=== PATIENT | male | born 1975 | race Caucasian/White ===

== ENCOUNTER → 2019-12-22 | Outpatient (CLI) | payer BC ==
--- NOTE | 2019-12-23 04:20 | REP ---
Clinical: Lower extremity edema. Technique: Real time wolf scale and color Doppler evaluation using linear high frequency transducer. Reflux evaluation performed. Findings: Ultrasound examination of the bilateral lower extremity deep venous structures from the common femoral vein to the popliteal vein demonstrates normal compressibility, flow, and wave patterns in response to respiration and augmentation. There is no evidence for deep venous thrombosis. Significant edema is appreciated bilaterally (right greater than left). Incidental duplicated left mid femoral vein noted. Right inguinal lymph node measure up to 2.8 x 1.2 x 2.0 cm. Reflux evaluation of the right lower extremity demonstrates minimal reflux through the deep venous structures. No reflux noted through the superficial system. Reflux evaluation of the left lower extremity demonstrates minimal reflux through the deep venous structures. No reflux noted through the superficial system. Impression: 1. No evidence for deep venous thrombosis. 2. Minimal reflux through the bilateral deep venous systems. 3. Bilateral lower extremity edema (right greater than left) somewhat limits evaluation. 4. 2.8 x 1.2 x 2.0 cm right inguinal lymph node. Electronically Signed by Damon Saenz MD 12/23/2019 04:11 A
== END ==
LOC: M RAD 08:12
PROVIDERS: ATTEND Physician Assistant
DX: R60.9 Edema, unspecified (principal)

== ENCOUNTER → 2020-01-11 | Outpatient (CLI) | payer BC | LOC: M LABSMTC 10:48 | PROVIDERS: ATTEND Anesthesiology | DX: Z03.818 Encounter for observation for suspected exposure to other biological agents ruled out (principal); Z11.59 Encounter for screening for other viral diseases | CPT/HCPCS: C9803; U0003 ==

== ENCOUNTER 2020-01-14 08:03 | Day surgery (SDC) | payer BC ==
[~2020-01-14] VITALS: Ht 175.3 cm; Wt 104.5 kg
[~2020-01-14 08:03] MED LIST: LIDOCAINE 1% MDV 20ML VIAL SQ PRN; LR 1,000 ML IV ONE
[2020-01-14] MEDS ORDERED: MIDAZOLAM INJ 2MG/2ML VIAL (J2250 PER 1MG) As Ordered ONE (09:56)
[2020-01-14] MEDS ORDERED: ONDANSETRON 4MG/2ML VIAL As Ordered ONE (09:57)
[2020-01-14] MEDS ORDERED: METOCLOPRAMIDE INJ 10MG/2ML VIAL (J2765 PER 1) As Ordered ONE (09:57)
[2020-01-14] MEDS ORDERED: LIDOCAINE 2% 100MG/5ML SDV (FOR ANES.) As Ordered ONE (09:57)
[2020-01-14] MEDS ORDERED: propofoL 500 MG/50 ML VIAL As Ordered ONE (09:57)
[2020-01-14] MEDS ORDERED: fentaNYL 100 MCG/2 ML INJECTION (J3010) As Ordered ONE (09:58)
[2020-01-14] MEDS ORDERED: BUPIVACAINE HCL 0.25% 30ML VIAL As Ordered ONE (11:50)
[2020-01-14] MEDS ORDERED: LR 1,000 ML IV SCH (12:30)
[2020-01-14] MEDS ORDERED: PERCOCET 5MG/325MG TAB PO PRN (12:30)
[2020-01-14] MEDS ORDERED: ONDANSETRON 4MG/2ML VIAL IV PRN (12:30)
[2020-01-14] MEDS ORDERED: fentaNYL 100 MCG/2 ML INJECTION (J3010) IV PRN (12:30)
[2020-01-14] MEDS ORDERED: MEPERIDINE INJ 25 MG/ML VIAL (J2175) IV PRN (12:30)
[2020-01-14] MEDS ORDERED: METOCLOPRAMIDE INJ 10MG/2ML VIAL (J2765 PER 1) IV PRN (12:30)
[2020-01-14] MEDS ORDERED: ACETAMINOPHEN TAB 650MG DOSE (2X325MG) PO PRN (12:45)
[2020-01-14] MEDS ORDERED: IBUPROFEN 600MG TAB PO PRN (12:45)
[2020-01-14 14:00] VITALS: BP 134/77
--- NOTE | 2020-01-18 14:04 | RO ---
DATE OF PROCEDURE: 01/14/2020 PREPROCEDURE DIAGNOSIS: Extensive pelvic and inguinal adenopathy. POSTOPERATIVE DIAGNOSIS: Extensive pelvic and inguinal adenopathy. PROCEDURE PERFORMED: Excisional biopsy of right inguinal lymph node. SURGEON: Aurelio Leos MD ANESTHESIA: General. INDICATIONS FOR THE PROCEDURE: The patient is 44-year-old man who for about 6 months has noticed swelling in his right lower extremity. This became more pronounced. He was evaluated by his primary physician with lower extremity ultrasound that showed no evidence of deep venous thrombosis (DVT). Ultimately, he underwent a CT scan of the abdomen and pelvis that revealed extensive adenopathy throughout the pelvis and inguinal areas and also showing some evidence of bilateral hydronephrosis, right greater than left. He is now for a right inguinal node biopsy. OPERATIVE PROCEDURE: The patient was placed on the operating table in a supine position. Thromboembolic deterrents (TEDs) were utilized. He was placed under general anesthesia with a laryngeal mask airway (LMA). The patient's lower abdomen, groins, and genitalia were prepped and draped in a sterile fashion. By palpation, a large node was noted just above the level of the inguinal crease on the right. An approximately 4 cm oblique incision was made paralleling the skin crease. This was deepened into the subcutaneous tissues using the cautery. A self-retaining retractor was placed. The dissection was deepened through the fascia to the level of the node. The node was readily palpable. A slow careful circumferential dissection was carried out. Small vessels were clipped with hemoclips. Avascular tissue was divided with the cautery. It was necessary to extend the incision an additional centimeter or so for better exposure. Ultimately, a 2 cm rounded node was removed. This was sent to the pathology laboratory fresh for processing as a lymph node with concerns about possible lymphoma. The wound was inspected, and there was no evidence of bleeding and no signs of significant lymphatic leak. Approximately 10 mL of 0.25% Marcaine were infiltrated about the wound. The fascia was closed with a running suture of 3-0 chromic. The subcutaneous tissues were closed with chromic, and the skin edges were approximated with a running subcuticular 4-0 Vicryl. The wound was sealed with Dermabond. The patient tolerated the procedure well without apparent complication. He was awakened in the operating room and extubated and moved to the recovery room in stable condition. STEFANY
== END 2020-01-14 14:15 | disposition home or self-care (01) ==
LOC: M SDC 08:03
PROVIDERS: ATTEND Surgery
DX: C77.4 Secondary and unspecified malignant neoplasm of inguinal and lower limb lymph nodes (principal); I10 Essential (primary) hypertension
CPT/HCPCS: 38531; 88307; 88341; 88342; J2250; J2405; J2765; J3010

== ENCOUNTER → 2020-01-19 | Outpatient (CLI) | payer BC ==
[~2020-01-19] MED LIST changes: +FIRM120I5 SC; +KEFL500C17 PO; -LIDOCAINE 1% MDV 20ML VIAL SQ PRN; -LR 1,000 ML IV ONE
== END ==
LOC: M LAB 09:09
PROVIDERS: ATTEND Urology
DX: C61 Malignant neoplasm of prostate (principal)

== ENCOUNTER → 2020-01-21 | Outpatient (CLI) | payer BC ==
[2020-01-21 13:44] LABS: APPEARANCE, URINE CLEAR (CLEAR); BACTERIA, URINE AUTO NEGATIVE (NEGATIVE); BILIRUBIN, URINE AUTO NEGATIVE (NEGATIVE); BLOOD, URINE BLOOD 1+ (NEGATIVE); COLOR, URINE YELLOW (YELLOW); GLUCOSE, URINE (UA) AUTO NEGATIVE (NEGATIVE); KETONE, URINE AUTO NEGATIVE (NEGATIVE); LEUKOCYTE ESTERASE, URINE AUTO NEGATIVE (NEGATIVE); MUCUS, URINE SMALL (NEGATIVE); NITRITE, URINE AUTO NEGATIVE (NEGATIVE); PROTEIN, URINE AUTO 1+ mg/dL (NEGATIVE); RBC, URINE AUTO 0 /HPF (0-3); SPECIFIC GRAVITY URINE AUTO 1.015 (1.002-1.035); SQUAMOUS EPITHELIAL CELL UR AU 0 /HPF (0-6); UROBILINOGEN, URINE AUTO 0.2 mg/dL (0.0-2.0); WBC, URINE AUTO 0 /HPF (0-3)
--- NOTE | 2020-01-21 16:01 | REP ---
TWO-VIEW CHEST: REASON: Preop. PRIORS: None. FINDINGS: The superior mediastinal structures are midline. The cardiac silhouette is unremarkable in size, shape, and position. The diaphragmatic surfaces of the lungs are regular, and the costophrenic angles are clear. The pulmonary guadarrama are clear. The imaged osseous structures are intact. IMPRESSION: There is no acute cardiopulmonary disease. Electronically Signed by Bernardo Vaz DO 01/21/2020 04:34 P
--- NOTE | 2020-01-21 17:30 | ECGEPIP ---
[facility] Test Date: 2020-01-21 Pat Name: KEVIN WEST Department: Room: - Gender: Male Help Desk Internship: DENI : 1975 Requested By: Susan CASTAÑEDA Order Number: [id number] Reading MD: Robby Mckeon Measurements Intervals [place] Rate: 84 P: 28 NH: 160 QRS: 4 QRSD: 104 T: 13 QT: 376 QTc: 445 Interpretive Statements SINUS RHYTHM BORDERLINE LEFFT AXIS DEVIATION No prior tracing in the system Electronically Signed on 01-21-2020 17:30:19 EDT by Robby Mckeon
== END ==
LOC: M LAB 12:29
PROVIDERS: ATTEND Nurse Practitioner Women's Health
DX: Z01.818 Encounter for other preprocedural examination (principal); N13.39 Other hydronephrosis

== ENCOUNTER 2020-01-23 14:34 | Emergency (ER) | payer BC ==
[~2020-01-23] VITALS: Ht 175.3 cm; Wt 105.4 kg
[2020-01-23 14:34] VITALS: BP 156/76
[2020-01-23] MEDS ORDERED: CEPHALEXIN 500 MG CAP PO ONE (15:15)
[2020-01-23] MEDS ORDERED: KEFL500C17 PO (15:17)
== END 2020-01-23 15:27 | disposition home or self-care (01) ==
LOC: M ED 14:34
DX: L03.314 Cellulitis of groin (principal)

== ENCOUNTER → 2020-01-23 | Outpatient (CLI) | payer BC | LOC: M LABSMTC 09:29 | PROVIDERS: ATTEND Anesthesiology | DX: Z01.818 Encounter for other preprocedural examination (principal); Z11.59 Encounter for screening for other viral diseases | CPT/HCPCS: C9803; U0003 ==

== ENCOUNTER 2020-01-26 07:37 | Day surgery (SDC) | payer BC ==
[~2020-01-26] VITALS: Ht 172.7 cm; Wt 102.4 kg
[~2020-01-26 07:37] MED LIST changes: -FIRM120I5 SC; +LIDOCAINE 1% MDV 20ML VIAL SQ PRN; +ceFAZolin SOD 2 GM in IV 1 EA IV ONE
[2020-01-26 08:26] LABS: INR 1.11
[2020-01-26] MEDS ORDERED: LR 1,000 ML IV ONE (08:30)
[2020-01-26] MEDS ORDERED: FIRM120I5 SC (08:33)
[2020-01-26] MEDS ORDERED: fentaNYL 100 MCG/2 ML INJECTION (J3010) As Ordered ONE (09:59)
[2020-01-26] MEDS ORDERED: ONDANSETRON 4MG/2ML VIAL As Ordered ONE (09:59)
[2020-01-26] MEDS ORDERED: propofoL 200 MG/20 ML VIAL As Ordered ONE ×3 (09:59→11:44)
[2020-01-26] MEDS ORDERED: dexameTHASONE 4 MG/ML 1ML VIAL (J1100 PER 1MG) As Ordered ONE (09:59)
[2020-01-26] MEDS ORDERED: LIDOCAINE 2% 100MG/5ML SDV (FOR ANES.) As Ordered ONE (09:59)
[2020-01-26] MEDS ORDERED: MIDAZOLAM INJ 2MG/2ML VIAL (J2250 PER 1MG) As Ordered ONE (10:00)
[2020-01-26] MEDS ORDERED: ISOVUE-300 61% 50ML VIAL As Ordered ONE (10:37)
[2020-01-26] MEDS ORDERED: LIDOCAINE 2% 5ML JELLY UROJET As Ordered ONE (10:37)
[2020-01-26] MEDS ORDERED: KETAMINE HCL 200 MG/20 ML VIAL As Ordered ONE (10:55)
--- NOTE | 2020-01-26 12:03 | REP ---
RETROGRADE PYELOGRAM: Two views. HISTORY: Bilateral stents. 26 seconds of fluoroscopy time is reported. FINDINGS: A sequence of two last image hold fluoroscopically obtained spot radiographs of the abdomen document ureteral cannulation and bilateral stent placement. Electronically Signed by Diogo Denise MD 01/26/2020 12:31 P
[2020-01-26 13:28] VITALS: BP 142/78
--- NOTE | 2020-01-29 14:45 | RO ---
DATE OF PROCEDURE: 01/26/2020 PREPROCEDURE DIAGNOSIS: Bilateral ureteral obstruction. POSTPROCEDURE DIAGNOSIS: Bilateral ureteral obstruction. PROCEDURE: Cystoscopy, bilateral retrograde pyelogram with intraoperative interpretation of images, bilateral ureteral stent placement. SURGEON: Nate Styles MD SOLUTION DEVELOPER: None. ANESTHESIA: Monitored anesthesia care (MAC). OPERATIVE INDICATIONS: This is a 44-year-old male with bilateral ureteral obstruction secondary to retroperitoneal lymphadenopathy. He was brought to the operating room for the above-listed procedure. DESCRIPTION OF PROCEDURE: The patient was brought to the operating room, and MAC anesthesia was administered. Prophylactic antibiotics were infused. He was then placed in the dorsal lithotomy position and prepped and draped in the usual sterile fashion. A rigid cystoscope was inserted in the urethral meatus and advanced into the bladder. A guidewire was advanced up the right collecting system. I then advanced a 5-Haitian open-ended ureteral catheter into the right collecting system. A retrograde pyelogram was performed, and was notable for moderate right hydronephrosis with no extravasation. I then removed the ureteral catheter and utilized the wire to advance the sheath for a Resonance stent into the right collecting system. Of note, this went up with a little bit of difficulty, but I was ultimately able to get the sheath into the renal pelvis. I then advanced a 6-Haitian x 22-cm Resonance stent through the sheath and into the right collecting system. The sheath was then withdrawn completely until there were adequate curls of the stent in the right renal pelvis and in the bladder. I then advanced the wire up the left collecting system. I then advanced a 5-Haitian open-ended ureteral catheter over the wire into the left collecting system. The ureteral catheter was utilized to get a retrograde pyelogram, and it was notable for moderate left hydronephrosis with no extravasation. I then advanced the wire back up and removed the ureteral catheter. The ureteral catheter was removed and then I utilized the wire to advance the sheath for another Resonance stent into the left collecting system. Of note, on this side, I decided to use a 6-Haitian x 24-cm Resonance stent. I then advanced the 6-Haitian x 24-cm Resonance stent through the sheath into the left collecting system. The sheath was then withdrawn completely until there were curls in the left renal pelvis and in the bladder. At this point, the bladder was emptied of all fluids, and this marked the conclusion of the procedure. The patient was then taken out of the dorsal lithotomy position, awakened from anesthesia, and transported to the recovery room in stable condition. ESTIMATED BLOOD LOSS: 10 mL. COMPLICATIONS: None. SPECIMENS: None. PLAN: We will leave these stents in for up to a year if they adequately drain his kidneys. If they do not drain well, we will change them out sooner. STEFANY
== END 2020-01-26 13:38 | disposition home or self-care (01) ==
LOC: M SDC 07:37
PROVIDERS: ATTEND Urology
DX: N13.39 Other hydronephrosis (principal); C61 Malignant neoplasm of prostate; I10 Essential (primary) hypertension
CPT/HCPCS: 36415; 52332; 74420; 85610; C1769; C2625; J0690; J1100; J2250; J2405; J3010; Q9967